=== PATIENT | female | born 1970 | race Caucasian/White ===

== ENCOUNTER 2018-09-15 11:55 | Emergency (ER) | payer SELFPAY ==
[~2018-09-15] VITALS: Ht 175.3 cm; Wt 65.8 kg
[2018-09-15 12:00] VITALS: Ht 175.3 cm; Wt 65.8 kg
[2018-09-15 13:15] LABS: BASOPHIL % 0.2 % (0-2); PLATELET COUNT 228 x10^3mcL (130-400); RED CELL DISTRIBUTION WIDTH 12.9 % (11.5-14.5)
[2018-09-15 13:32] LABS: CALCIUM 8.9 mg/dL (8.5-10.1); CARBON DIOXIDE 30.3 mmol/L (21-32); CHLORIDE SERUM 104 mmol/L (98-107); CREATININE SERUM 0.6 mg/dL (0.6-1.0); GFR1 > 60 mL/min; GLUCOSE SERUM 102 mg/dL (74-106); SODIUM SERUM 143 mmol/L (136-145)
[2018-09-15 13:37] LABS: ALBUMIN 4.2 g/dL (3.4-5.0); ALKALINE PHOSPHATASE 67 U/L (46-116); ALT/SGPT 31 U/L (14-59); AMYLASE 32 U/L (25-115); AST/SGOT 28 U/L (15-37); BILIRUBIN TOTAL 0.52 mg/dL (0.20-1.00); LIPASE 99 IU/L (73-393); MAGNESIUM 2.2 mg/dL (1.8-2.4); T4(THYROXINE) 6.7 ug/dL (4.7-13.3)
[2018-09-15 13:39] LABS: CHOLESTEROL 257 mg/dL (<200); HDL CHOLESTEROL 98 mg/dL (40-60)
[2018-09-15 13:45] LABS: microscopic required? YES; urine erythrocyte 1+ (NEGATIVE)
[2018-09-15 13:54] LABS: AMPHETAMINE QUAL UR NONE DETECTED (See below)
[2018-09-15 15:06] VITALS: BP 141/87
== END 2018-09-15 15:06 | disposition home or self-care (01) ==
LOC: ED 11:55
PROVIDERS: Emergency Medicine
DX: R07.89 Other chest pain (principal); S09.8XXD Other specified injuries of head, subsequent encounter; F17.200 Nicotine dependence, unspecified, uncomplicated; Z71.6 Tobacco abuse counseling; W01.0XXD Fall on same level from slipping, tripping and stumbling without subsequent striking against object, subsequent encounter
CPT/HCPCS: 36415; 82962; 83880; 99406; Q0092